=== PATIENT | female | born 1990 | race Caucasian/White ===

== ENCOUNTER 2022-11-14 10:08 | Outpatient (CLI) | payer BC, SELFPAY ==
[2022-11-14 12:05] LABS: TSH With Reflex to FT4* 0.733 uIU/mL (0.270-4.200)
== END 2022-11-14 10:09 | disposition home or self-care (01) ==
PROVIDERS: Visit Provider Registered Nurse
DX: N92.0 Excessive and frequent menstruation with regular cycle (principal)
CPT/HCPCS: 84443

== ENCOUNTER 2025-09-21 08:40 | Outpatient (CLI) | payer BC, SELFPAY | END 2025-09-21 08:41 | disposition home or self-care (01) | LOC: NFLDREF 09-26 09:51 | PROVIDERS: Visit Provider Registered Nurse | DX: Z13.6 Encounter for screening for cardiovascular disorders (principal) | CPT/HCPCS: 80061 ==

== ENCOUNTER 2025-09-27 09:32 | Outpatient (CLI) | payer BC, SELFPAY ==
--- NOTE | 2025-09-27 09:45 | CRLHL7_ITS ---
For Patients: As a result of the Century Cures Act, medical imaging exams and procedure reports are released immediately into your electronic medical record. You may view this report before your referring provider. If you have questions, please contact your health care provider. DIGITAL DIAGNOSTIC BILATERAL MAMMOGRAM USING TOMOSYNTHESIS AND COMPUTER-AIDED DETECTION RIGHT BREAST ULTRASOUND CLINICAL HISTORY: RIGHT breast lump. COMPARISON: None. TECHNIQUE: Digital BILATERAL mammogram in four projections with computer-aided detection. Tomosynthesis was used in this interpretation. Real-time ultrasound imaging of RIGHT breast with imaging documentation. BREAST COMPOSITION: There are scattered areas of fibroglandular density. FINDINGS: 3D CC/MLO BILATERAL mammogram images submitted. Postop changes of reduction mammoplasty bilaterally. Calcified scar tissue noted bilaterally. No suspicious masses. No adenopathy. Targeted RIGHT breast ultrasound performed in the area of concern at 12 o`clock 6 cm from the nipple. Dense dystrophic calcification is present at anterior depth which measures 2.3 x 1.8 cm. IMPRESSION: Focal calcified scar tissue/fat necrosis RIGHT breast 12 o`clock 6 cm from the nipple. No evidence of malignancy. RECOMMENDATIONS: Age-appropriate screening mammography. A lay language report of this examination will be provided to the patient. BI-RADS Category 2: Benign Dictated by Kane Chavis MD @ 09/27/2025 11:00:10 AM jj/Dictated by: Kane Chavis MD @ 09/27/2025 11:00:00 AM (Electronically Signed)
--- NOTE | 2025-09-27 10:15 | CRLHL7_ITS ---
For Patients: As a result of the Cures Act, medical imaging exams and procedure reports are released immediately into your electronic medical record. You may view this report before your referring provider. If you have questions, please contact your health care provider. SEE DIGITAL DIAGNOSTIC BILATERAL MAMMOGRAM PERFORMED SAME DAY CRL:[email or web address] cruz/Dictated by: Kane Chavis MD @ 09/27/2025 11:00:00 AM (Electronically Signed)
== END 2025-09-27 09:33 | disposition home or self-care (01) ==
LOC: MAMMO 09:33
PROVIDERS: Visit Provider Registered Nurse
DX: N63.10 Unspecified lump in the right breast, unspecified quadrant (principal)
CPT/HCPCS: 76642; 77066; G0279